=== PATIENT | female | born 1950 | race Caucasian/White ===

== ENCOUNTER → 2017-10-22 08:19 | Outpatient (CLI) | payer MEDICARE, SELFPAY ==
--- NOTE | 2017-10-22 08:24 | MM_ITS ---
MM Dig screening mamm BI w/CAD CAD Screening COMPARISON: Digital mammograms 08/30/2015 and 09/01/2016 INDICATION: There is no personal or family history of breast cancer. TECHNIQUE: Standard CC and MLO images were obtained. R2 CAD reviewed. FINDINGS: Prominent diffuse fibroglandular densities are seen throughout both breast again slightly more prominent in the subareolar region right breast. There is a mole marker right breast. There is no suspicious lesion and there are no suspicious microcalcifications. IMPRESSION: Stable exam no suspicious lesion seen BI-RADS Category: 1 Negative RECOMMENDED FOLLOW-UP: 1YR - 1 YEAR FOLLOW-UP (A letter has been sent to the patient regarding results of the study.)
== END ==
PROVIDERS: Family Provider Internal Medicine Adolescent Medicine; PCP Internal Medicine Adolescent Medicine; Visit Provider Internal Medicine Adolescent Medicine
DX: Z12.31 Encounter for screening mammogram for malignant neoplasm of breast (principal)
CPT/HCPCS: 77067

== ENCOUNTER → 2018-10-23 12:21 | Outpatient (CLI) | payer MEDICARE, SELFPAY ==
[2018-10-23 14:51] LABS: Alanine Aminotransferase 32 U/L (12-78); Albumin Level 4.8 gm/dL (3.4-5.0); Albumin/Globulin Ratio 1.5 (1.1-1.8); Alkaline Phosphatase 110 U/L (46-116); Anion Gap 14.6 mEq/L (5-15); Aspartate Amino Transferase 11 U/L (15-37); Bilirubin,Total 0.7 mg/dL (0.2-1.0); Blood Urea Nitrogen 22 mg/dL (7-18); Calcium 9.7 mg/dL (8.5-10.1); Carbon Dioxide 28 mmol/L (21.0-32.0); Chloride 103 mmol/L (98-107); Chol/HDL Ratio 4.1 (1-3.5); Cholesterol 185 mg/dL (140-200); Creatinine,Serum 0.87 mg/dL (0.55-1.02); Estimated Glomerular Filt Rate 65 ml/min (>60); GFR (African American) 78 ML/MIN (>60); Globulin 3.1 gm/dl (1.3-3.2); Glucose 128 mg/dL (74-106); HDL Cholesterol 45 mg/dL (29-89); LDL Cholesterol 114 mg/dL (0-130); Potassium 4.6 mmoL/L (3.5-5.1); Sodium 141 mmol/L (136-145); Total Protein,Serum 7.9 gm/dL (6.4-8.2); Triglycerides 132 mg/dL (30-200); VLDL Cholesterol 26 mg/dL (0-40)
== END ==
PROVIDERS: Visit Provider Internal Medicine Adolescent Medicine
DX: E11.9 Type 2 diabetes mellitus without complications (principal)
CPT/HCPCS: 36415; 80053; 80061; 83036

== ENCOUNTER → 2018-10-25 08:52 | Outpatient (CLI) | payer MEDICARE, SELFPAY ==
--- NOTE | 2018-10-25 09:01 | MM_ITS ---
MM Dig screening mamm BI w/CAD CAD Screening COMPARISON: Digital mammograms with CAD 10/22/2017 and 09/01/2016 INDICATION: There is no personal or family history of breast cancer. TECHNIQUE: Standard CC and MLO images were obtained. R2 CAD reviewed. FINDINGS: Prominent diffuse heterogenic fibroglandular densities are seen throughout both breasts and the findings are bilateral and symmetrical. There is a mole marker right breast. There is no new or suspicious lesion in either breast and there are no suspicious microcalcifications. IMPRESSION: Stable exam with moderate diffuse breast density BI-RADS Category: 1 Negative RECOMMENDED FOLLOW-UP: 1YR - 1 YEAR FOLLOW-UP (A letter has been sent to the patient regarding results of the study.)
--- NOTE | 2018-10-25 09:01 | XR_ITS ---
XR DEXA axial skeleton HISTORY: ITS.REASON: POST MENOPAUSAL ORDERING PHYSICIAN: Rob Smith MD PATIENT AGE: 68 years COMPARISON: None FINDINGS: The BMD measured at the Left femoral neck is 0.921 g/cm squared with a T score of -0.8. This is considered Normal according to the World Health Organization criteria. Fracture risk is Low. L1 L4 density has a T score of -0.4 which is within normal limits. IMPRESSION: Normal bone density with low fracture risk. Suggest follow-up exam October 2020
== END ==
PROVIDERS: PCP Internal Medicine Adolescent Medicine; Visit Provider Internal Medicine Adolescent Medicine
DX: Z12.31 Encounter for screening mammogram for malignant neoplasm of breast (principal); Z78.0 Asymptomatic menopausal state; Z13.820 Encounter for screening for osteoporosis
CPT/HCPCS: 77067; 77080

== ENCOUNTER → 2019-10-27 09:10 | Outpatient (CLI) | payer MEDICARE, SELFPAY ==
--- NOTE | 2019-10-27 09:13 | MM_ITS ---
PROCEDURE: MM DIG SCREENING MAMM BI W/CAD BILATERAL DIGITAL BREAST TOMOSYNTHESIS included Patient Age:69Y CLINICAL INDICATION: SCREENING no hormones, no new complaints. Noncontributory family history The the COMPARISON: [facility] DIGITAL MAMM-SCREEN BILATERAL from 04/21/2011 [facility] DIGITAL MAMM-SCREEN BILATERAL from 07/12/2012 [facility] DIG MAMM-SCREEN TIM from 07/16/2013 [facility] DIG MAMM-SCREEN TIM from 08/28/2014 [facility] DIG MAMM-SCREEN TIM from 08/30/2015 [facility] DIG MAMM-SCREEN TIM W/CAD from 09/01/2016 [facility] MM Dig screening mamm BI w/CAD from 10/22/2017 [facility] MM Dig screening mamm BI w/CAD from 10/25/2018 the and bridge the TECHNIQUE: Standard CC and MLO images were obtained. R2 CAD reviewed. BILATERAL DIGITAL BREAST TOMOSYNTHESIS included FINDINGS: Moderate density breast. Scattered fibroglandular elements throughout the breast most notable at the retroareolar region bilaterally. Comparison a previous studies show no significant new findings but no new areas of concern. Right breast no new features of significant concern Mole marker at the medial right breast the area of density at the deep medial right breast on CC views unchanged since 2013 Left breast:. No new features of significant concern. Stable areas of fibroglandular density retroareolar region along with stable punctate single calcification, retroareolar region IMPRESSION: Stable bilateral mammogram . No significant new areas of concern. Bilateral follow-up 1 year recommended and should be encouraged Moderate breast density. BI-RAD Category: 1 Negative FOLLOW-UP: 1YR 1 Year Follow-up (A letter has been sent to the patient regarding results of the study.) Dictated by: Nav Walters MD 10/30/2019 12:07 Electronically signed by Nav Walters MD in [place] 10/30/2019 12:07
== END ==
PROVIDERS: PCP Internal Medicine Adolescent Medicine; Visit Provider Internal Medicine Adolescent Medicine
DX: Z12.31 Encounter for screening mammogram for malignant neoplasm of breast (principal)
CPT/HCPCS: 77063; 77067

== ENCOUNTER → 2020-11-03 14:43 | Outpatient (CLI) | payer MEDICARE, SELFPAY ==
--- NOTE | 2020-11-03 14:57 | XR_ITS ---
PROCEDURE: XR CHEST 2V CLINICAL HISTORY: CLAVICLE ENLARGEMENT,CLAVICLE DEFORMITY COMPARISON: No exams were available for comparison FINDINGS: The cardiomediastinal silhouette and pulmonary vascularity are within normal limits. The lungs are clear without infiltrates, suspicious nodules, or pleural effusions. No acute bony abnormalities. IMPRESSION: No acute findings. Dictated by: Blake Montaño MD 11/03/2020 16:26 Blake Montaño MD in [facility] 11/03/2020 16:26
--- NOTE | 2020-11-03 14:57 | XR_ITS ---
PROCEDURE: XR CLAVICLE RT CLINICAL INDICATION: CLAVICLE ENLARGEMENT,CLAVICLE DEFORMITY Knot on clavicle near the sternum COMPARISON: No exams were available for comparison FINDINGS: No fracture or dislocation. No lytic or blastic change. There is normal mineralization. Osteoarthritic changes are present at the acromioclavicular joint. There is a downsloping a chromium with subacromial stenosis and suggestion of a calcific tendinitis of the right shoulder. The sternoclavicular joint is not well demonstrated on this study and may be better evaluated with CT. Other findings:None. IMPRESSION: Osteoarthritic changes are present at the acromioclavicular joint. There is a downsloping a chromium with subacromial stenosis and suggestion of a calcific tendinitis of the right shoulder. The sternoclavicular joint is not well demonstrated on this study and may be better evaluated with CT. Dictated by: Blake Montaño MD 11/03/2020 16:25 Blake Montaño MD in [facility] 11/03/2020 16:25
== END ==
PROVIDERS: PCP Internal Medicine Adolescent Medicine; Visit Provider Internal Medicine Adolescent Medicine
DX: M89.311 Hypertrophy of bone, right shoulder (principal); M95.8 Other specified acquired deformities of musculoskeletal system
CPT/HCPCS: 71046; 73000

== ENCOUNTER → 2020-12-10 12:28 | Outpatient (CLI) | payer MEDICARE, SELFPAY ==
--- NOTE | 2020-12-10 12:31 | CT_ITS ---
PROCEDURE: CT CHEST WO CON CLINICAL INDICATION: CLAVICLE ENLARGEMENT,CLAVICLE DEFORMITY COMPARISON: No exams were available for comparison TECHNIQUE: Axial images obtained with sagittal and coronal reformats. All CT scans at the facility use one or more dose reduction, viz: automated exposure control, ma/kV adjustment per patient size (including targeted exams where dose is matched to indication, i.e. head), or iterative reconstruction technique. FINDINGS: There is a hypodense 10 mm nodule involving the isthmus of the thyroid gland. This may be better evaluated with ultrasound. Osteoarthritic change involves the right sternoclavicular joint with osteophyte formation of the joint with mild prominence of the head of the clavicle on the right. No bony lytic or blastic change apparent No evidence of aortic aneurysm. Coronary artery calcifications are present. There is mild thickening of the pericardium at approximately 5 mm. There is a small hiatal hernia. Scattered small nodes are present in the left axilla. There is evidence of old granulomatous disease. A nonspecific 3 mm nodules present in the right lower lobe posteriorly image 54 series 3 there is a small cluster of nodules in the left upper lobe anteriorly largest of which measures 4 mm. Calcified granuloma is present in the right upper lobe. Mild atelectatic or fibrotic changes are present in the left lung base posteriorly. There is some mild associated bronchial thickening in the left lower lobe. A 3 mm subpleural nodules present in the left lower lobe laterally image 57 Small sclerotic focus is present involving the T5 vertebral body suggesting a small bone island. There are mild degenerative changes in the thoracic spine. IMPRESSION: 1. Bony hypertrophy of the head of the clavicle with osteoarthritic change of the right sternoclavicular joint likely accounting for the palpable abnormality. No bony destructive process. No soft tissue mass. 2. 1 cm nodule in the isthmus of the thyroid gland which may be better evaluated with ultrasound. 3. There are scattered small pulmonary nodules measuring up to 4 mm. These are nonspecific and could be related to noncalcified granulomas. Six-month follow-up suggested to confirm stability. 4. Mild atelectasis or fibrosis in the left lower lobe with left lower lobe bronchial thickening Dictated by: Blake Montaño MD 12/11/2020 14:09 Blake Montaño MD in [facility] 12/11/2020 14:09
== END ==
PROVIDERS: PCP Internal Medicine Adolescent Medicine; Visit Provider Internal Medicine Adolescent Medicine
DX: M89.311 Hypertrophy of bone, right shoulder (principal); M95.8 Other specified acquired deformities of musculoskeletal system
CPT/HCPCS: 71250

== ENCOUNTER → 2021-01-03 12:44 | Outpatient (CLI) | payer MEDICARE, SELFPAY ==
--- NOTE | 2021-01-03 12:49 | US_ITS ---
PROCEDURE: US THYROID CLINICAL INDICATION: THYROID NODULE Seen on recent CT in pacs. Seen at isthmus. COMPARISON: CT CT CHEST WO CON from 12/10/2020 FINDINGS: Right lobe: 1.4cm x 4.1cm x 1.9cm. 2 mm hypoechoic nodule lower pole Left lobe: 1.1cm x 4.0cm x 1.6cm. 2 mm hypoechoic nodule mid polar region Isthmus: 14 by 10 mm hyperechoic nodule well-circumscribed with peripheral decreased echogenicity noted in the right aspect of the isthmus. No obvious internal calcifications. The nodule is taller than wide. Additional findings: IMPRESSION: T rads level 4 nodule of the right aspect of the isthmus less than 1.5 cm. Suggest 6-12 month follow-up. Dictated by: Blake Montaño MD 01/04/2021 05:56 Blake Montaño MD in [facility] 01/04/2021 05:56
[2021-01-03 12:58] LABS: Alanine Aminotransferase 25 U/L (12-78); Albumin Level 5.1 g/dl (3.5-5.0); Alkaline Phosphatase 91 U/L (38-126); Anion Gap 12.6 mEq/L (5-15); Aspartate Amino Transferase 28 U/L (14-36); Bilirubin,Total 0.7 mg/dl (0.2-1.3); Blood Urea Nitrogen 18 mg/dl (7-17); Calcium 10.2 mg/dl (8.4-10.2); Carbon Dioxide 27 mmol/L (22.0-30.0); Chloride 105 mmol/L (98-107); Estimated Glomerular Filt Rate 82 ml/min (>60); GFR (African American) 100 ML/MIN (>60); Globulin 2.5 g/dL (1.3-3.2); Glucose 125 mg/dl (74-100); Potassium 4.6 mmoL/L (3.5-5.1); Sodium 140 mmol/L (136-145); Total Protein,Serum 7.6 g/dl (6.3-8.2)
[2021-01-03 13:13] LABS: Free Thyroxine Index 2.6 ug/dL (5.93-13.13); T4 (Thyroxine) 7.6 ug/dl (5.53-11.0); Triiodothryronine (T3) Uptake 34 % (23.5-40.5)
[2021-01-03 13:27] LABS: Thyroid Stimulating Hormone 1.18 uIU/mL (0.465-4.68)
[2021-01-03 20:44] LABS: Hemoglobin A1C 7.2 % (4.0-6.0)
== END ==
PROVIDERS: PCP Internal Medicine Adolescent Medicine; Visit Provider Internal Medicine Adolescent Medicine
DX: E11.9 Type 2 diabetes mellitus without complications (principal); E04.1 Nontoxic single thyroid nodule
CPT/HCPCS: 36415; 76536; 80053; 83036; 84436; 84443; 84479

== ENCOUNTER → 2021-04-26 08:21 | Outpatient (CLI) | payer MEDICARE, SELFPAY ==
--- NOTE | 2021-04-26 08:24 | MM_ITS ---
PROCEDURE: MM DIG SCREENING MAMM BI W/CAD Digital Breast Tomosynthesis Included CLINICAL INDICATION: SCREENING COMPARISON: MG [facility] MM Dig screening mamm BI w/CAD from 10/22/2017 MG [facility] MM Dig screening mamm BI w/CAD from 10/25/2018 MG MM DIG SCREENING MAMM BI W/CAD from 10/27/2019 TECHNIQUE: Standard CC and MLO images and 3D Tomosynthesis was obtained. R2 CAD reviewed. FINDINGS: Heterogeneous dense fibroglandular tissue which may obscure small masses. Benign-appearing calcifications. No suspicious appearing mass, malignant-appearing microcalcification, architectural distortion, or skin thickening. No change. IMPRESSION: Benign findings. No evidence of malignancy. BI-RAD Category: 2 Benign Finding FOLLOW-UP: 1 YR 1 Year Follow-up (A letter has been sent to the patient regarding results of the study.) Dictated by: Blake Montaño MD 04/29/2021 10:25 Blake Montaño MD in [facility] 04/29/2021 10:25
== END ==
PROVIDERS: PCP Internal Medicine Adolescent Medicine; Visit Provider Internal Medicine Adolescent Medicine
DX: Z12.31 Encounter for screening mammogram for malignant neoplasm of breast (principal)
CPT/HCPCS: 77063; 77067

== ENCOUNTER → 2021-07-04 12:46 | Outpatient (CLI) | payer MEDICARE, SELFPAY ==
--- NOTE | 2021-07-04 13:00 | US_ITS ---
PROCEDURE: US THYROID CLINICAL INDICATION: THYROID NODULE COMPARISON: US US THYROID from 01/03/2021 FINDINGS: Lobe is 4.3 x 1.8 x 1.3 cm. The left lobe is 3.8 x 1.9 x 1 5 cm. In the right aspect of the isthmus there is a well-circumscribed 1.6 x 1 cm hyperechoic nodule with a subtle lucent rim. This is not significantly changed. This lesion is wider than tall well-circumscribed and contains no obvious calcifications. TR level 2. 3 mm hypoechoic nodules present in the lower pole on the right unchanged. 2 mm hypoechoic nodule in the upper pole on the left unchanged IMPRESSION: No significant change in the solid hyperechoic well-circumscribed nodule of the isthmus on the right TR level 3 less than 2.5 cm. Suggest annual follow-up. Dictated by: Blake Montaño MD 07/04/2021 16:31 Blake Montaño MD in [facility] 07/04/2021 16:31
[2021-07-04 16:13] LABS: Alanine Aminotransferase 24 U/L (12-78); Albumin Level 4.7 g/dl (3.5-5.0); Albumin/Globulin Ratio 1.7 (1.1-1.8); Alkaline Phosphatase 93 U/L (38-126); Anion Gap 11.5 mEq/L (5-15); Aspartate Amino Transferase 28 U/L (14-36); Bilirubin,Total 0.9 mg/dl (0.2-1.3); Blood Urea Nitrogen 14 mg/dl (7-17); Carbon Dioxide 29 mmol/L (22.0-30.0); Chloride 103 mmol/L (98-107); Estimated Glomerular Filt Rate 98 ml/min (>60); GFR (African American) 119 ML/MIN (>60); Globulin 2.7 g/dL (1.3-3.2); Glucose 106 mg/dl (74-100); Potassium 4.5 mmoL/L (3.5-5.1); Sodium 139 mmol/L (136-145); Total Protein,Serum 7.4 g/dl (6.3-8.2)
[2021-07-04 16:43] LABS: Thyroid Stimulating Hormone 0.86 uIU/mL (0.465-4.68)
[2021-07-04 18:19] LABS: Hemoglobin A1C 7.1 % (4.0-6.0)
== END ==
PROVIDERS: PCP Internal Medicine Adolescent Medicine; Visit Provider Internal Medicine Adolescent Medicine
DX: E04.1 Nontoxic single thyroid nodule (principal); E11.9 Type 2 diabetes mellitus without complications
CPT/HCPCS: 36415; 76536; 80053; 83036; 84443

== ENCOUNTER → 2022-05-11 16:12 | Outpatient (CLI) | payer MEDICARE, SELFPAY ==
--- NOTE | 2022-05-11 16:16 | MM_ITS ---
PROCEDURE INFORMATION: Exam: MG Bilateral Screening 3D Mammography Exam date and time: 05/11/2022 4:11 PM Age: 71 years old Clinical indication: Screening examination TECHNIQUE: Imaging protocol: Bilateral Screening tomosynthesis and 2D mammography including computer-aided detection (CAD) when performed. COMPARISON: 1. MG MM DIG SCREENING MAMM BI W/CAD 04/26/2021 8:37 AM 2. MG MM DIG SCREENING MAMM BI W/CAD 10/27/2019 9:24 AM FINDINGS: MAMMOGRAPHY: Breast composition: The breasts are heterogeneously dense, which may obscure small masses. Mass: None. Architectural distortion: None. Calcifications: No suspicious calcifications. Asymmetric density: None. Skin thickening: None. Axillary adenopathy: None. IMPRESSION: No mammographic evidence of malignancy. Annual screening is recommended unless otherwise clinically indicated. ASSESSMENT: BI-RADS Category 1: Negative
== END ==
PROVIDERS: PCP Internal Medicine Adolescent Medicine; Visit Provider Internal Medicine Adolescent Medicine
DX: Z12.31 Encounter for screening mammogram for malignant neoplasm of breast (principal)
CPT/HCPCS: 77063; 77067

== ENCOUNTER → 2022-07-14 09:13 | Outpatient (CLI) | payer MEDICARE, SELFPAY ==
--- NOTE | 2022-07-14 09:16 | XR_ITS ---
FINAL REPORT TECHNIQUE: Bone densitometry calculations of the lumbar spine and left hip were obtained. CLINICAL HISTORY: . post menopausal COMPARISON: 10/25/2018 FINDINGS: Using L1-4, the bone mineral density of the spine is 0.995 g/cm2, was 1.136 corresponding to T-score of -0.5, was -0.4. Using the left hip, the bone mineral density of the femoral neck is 0.812 g/cm2, was 0.905 corresponding to a T-score of -1.1, was -0.8. Using the right hip, the bone mineral density of the femoral neck is 0.794 g/cm2, was 0.923 he corresponding to a T-score of T-score -0.5, was -0.8. NOTE: T-score: Standard deviation compared with peak bone mass of young adult mean. *Following the recommendations of the International Society of Bone densitometry, classification of hip BMD is based on the lower of two T-scores; total hip or femoral neck. IMPRESSION: Normal bone mineral density of the right hip and lumbar spine. Diminished bone mineral density of the left hip. Reviewed, Interpreted and Dictated by Jorge Coleman MD Transcribed by Celia Zheng Authenticated and [facility]
== END ==
PROVIDERS: PCP Internal Medicine Adolescent Medicine; Visit Provider Internal Medicine Adolescent Medicine
DX: Z13.820 Encounter for screening for osteoporosis (principal); Z78.0 Asymptomatic menopausal state
CPT/HCPCS: 77080

== ENCOUNTER → 2023-05-15 13:01 | Outpatient (CLI) | payer MEDICARE, SELFPAY ==
--- NOTE | 2023-05-15 13:05 | MM_ITS ---
PROCEDURE INFORMATION: Exam: MG Bilateral Screening 3D Mammography Exam date and time: 05/15/2023 1:10 PM Age: 72 years old Clinical indication: Screening mammogram. No personal or family history of breast cancer TECHNIQUE: Imaging protocol: Bilateral Screening tomosynthesis and 2D mammography including computer-aided detection (CAD) when performed. COMPARISON: 1. MG MM DIG SCREENING MAMM BI W/CAD 05/11/2022 4:11 PM 2. MG MM DIG SCREENING MAMM BI W/CAD 04/26/2021 8:37 AM 3. MG MM DIG SCREENING MAMM BI W/CAD 10/27/2019 9:24 AM 4. MG [facility] MM Dig screening mamm BI w/CAD 10/25/2018 9:17 AM FINDINGS: MAMMOGRAPHY: Breast composition: The breast is heterogeneously dense, which may obscure small masses. Mass: None. Architectural distortion: No new or suspicious architectural distortion. Calcifications: No new or suspicious calcifications are present Asymmetric density: No new or suspicious asymmetric density is present Skin thickening: None. Axillary adenopathy: None. IMPRESSION: No mammographic evidence of malignancy. Recommend annual screening mammography unless otherwise clinically indicated. ASSESSMENT: BI-RADS category 1: Negative
== END ==
PROVIDERS: PCP Internal Medicine Adolescent Medicine; Visit Provider Internal Medicine Adolescent Medicine
DX: Z12.31 Encounter for screening mammogram for malignant neoplasm of breast (principal)
CPT/HCPCS: 77063; 77067

== ENCOUNTER → 2023-07-17 13:34 | Outpatient (CLI) | payer MEDICARE, SELFPAY ==
--- NOTE | 2023-07-17 13:39 | US_ITS ---
FINAL REPORT CLINICAL HISTORY: THYROID NODULE FINDINGS: THYROID ULTRASOUND The right lobe of the thyroid measures 4.0 x 1.6 x 1.7 cm. The left lobe of the thyroid measures 4.0 x 1.3 x 1.4 cm. The parenchyma shows normal echogenicity. There is a dominant nodule in the right lobe of the thyroid near the isthmus measuring 1.3 cm that is solid and isoechoic consistent with a TI-RADS 3. No follow-up is required per TI-RADS criteria. There are tiny colloid cysts noted bilaterally. IMPRESSION: Dominant TI-RADS 3 right thyroid nodule. No follow-up required per TI-RADS criteria. Reviewed, Interpreted and Dictated by Jorge Coleman MD Transcribed by Pavel Mcnair Authenticated and [facility]
== END ==
PROVIDERS: PCP Internal Medicine Adolescent Medicine; Visit Provider Internal Medicine Adolescent Medicine
DX: E04.1 Nontoxic single thyroid nodule (principal)
CPT/HCPCS: 76536

== ENCOUNTER 2024-06-06 13:22 | Outpatient (CLI) | payer MEDICARE, SELFPAY ==
--- NOTE | 2024-06-06 13:24 | MM_ITS ---
PROCEDURE INFORMATION: Exam: MG Bilateral Screening 3D Mammography Exam date and time: 06/06/2024 1:22 PM Age: 74 years old Clinical indication: Screening examination TECHNIQUE: Imaging protocol: Bilateral Screening tomosynthesis and 2D mammography including computer-aided detection (CAD) when performed. COMPARISON: 1. MG MM DIG SCREENING MAMM BI W/CAD 05/15/2023 1:10 PM 2. MG MM DIG SCREENING MAMM BI W/CAD 05/11/2022 4:11 PM FINDINGS: MAMMOGRAPHY: Breast composition: There are scattered areas of fibroglandular density. Mass: None. Architectural distortion: None. Calcifications: No suspicious calcifications. Asymmetric density: None. Skin thickening: None. Axillary adenopathy: None. IMPRESSION: No mammographic evidence of malignancy. Annual screening is recommended unless otherwise clinically indicated. ASSESSMENT: BI-RADS Category 1: Negative.
== END 2024-06-06 23:59 | disposition home or self-care (01) ==
LOC: RAD 13:22
PROVIDERS: PCP Internal Medicine Adolescent Medicine; Visit Provider Internal Medicine Adolescent Medicine
DX: Z12.31 Encounter for screening mammogram for malignant neoplasm of breast (principal)
CPT/HCPCS: 77063; 77067

== ENCOUNTER 2025-01-07 10:57 | Outpatient (CLI) | payer MEDICARE, SELFPAY ==
--- NOTE | 2025-01-07 11:02 | XR_ITS ---
FINAL REPORT CLINICAL HISTORY: OSTEOARTHRITIS, knee pain, nki COMPARISON: None FINDINGS: AP, lateral and oblique views of the left knee were obtained. There is no prior exam for comparison. There is no acute osseous abnormality of the left knee. Mild degenerative joint disease is present. The soft tissues are normal. There is a small joint effusion. IMPRESSION: Degenerative joint disease, with no acute osseous abnormality of the left knee. Small joint effusion. Reviewed, Interpreted and Dictated by Deisi Segura MD Transcribed by Veronique Ferris Authenticated and [facility]
--- NOTE | 2025-01-07 11:02 | XR_ITS ---
FINAL REPORT CLINICAL HISTORY: knee pain, nki COMPARISON: None FINDINGS: AP, lateral and oblique views of the right knee were obtained. There is no prior exam for comparison. There is no acute osseous abnormality of the right knee. Mild degenerative joint disease is present. The soft tissues are normal. There is no joint effusion. IMPRESSION: Mild degenerative joint disease, with no acute osseous abnormality of the right knee. Reviewed, Interpreted and Dictated by Deisi Segura MD Transcribed by Veronique Ferris Authenticated and [facility]
== END 2025-01-07 23:59 | disposition home or self-care (01) ==
LOC: RAD 10:58
PROVIDERS: PCP Internal Medicine Adolescent Medicine; Visit Provider Internal Medicine Adolescent Medicine
DX: M17.0 Bilateral primary osteoarthritis of knee (principal)
CPT/HCPCS: 73562

== ENCOUNTER 2025-06-18 08:21 | Outpatient (CLI) | payer MEDICARE, SELFPAY ==
--- OUTSIDE RECORDS SUMMARY | 2008-11-30 08:48 | XMS_ITS | Continuity of Care Document ---
Author Organization [facility] Address [address] [place] [address] Phone Care Team Providers Care Cook Cold Meat Name Role Phone JOSHUA PARSONS, JACE Unavailable Unavaila ble Advance Directives Directive Yes / No Effective Date File Name No Information Encounters Encounter Description Practice Location Reason(s) For Visit Diagnoses Date Provider Providers Copied on Encounter [facility], [address] [place] [address] [address], [place], [place], [id number], tel:[phone] [facility] No Information Mar-3 0-200 9 JOSHUA JOLLY. [address] [place] [address], [address], [place], [place], [id number] . tel:[phone] Family History Family Member Type Diagnosis Age At Onset No Information Payers Payer name Insurance type Covered alliance party ID Authoriza tion(s) No Information Social History Type Description Quantity Date Captured Comments Sex Female Smoking Status No Information Chief Complaint And Reason For Visit No Information Plan Of Treatment Date Type Action Status No Information History Of Present Illness Encounter Date Complaint History Of Prese nt Illness No Information Instructions Date Instruction Additional Infor mation No Information Assessments Type Assessment Date No Information
--- OUTSIDE RECORDS SUMMARY | 2024-12-06 17:30 | XMS_ITS ---
Author Organization [facility] Address [address] [place] [address] Care Team Providers Care Director Search Name Role Phone Rob Smith Primary Care Provider Migration, Provider Unavailable Unavailable Allergies Allergen (clinical drug ingredient) Drug/Non Drug Allergy documented on EMR Reaction Allergy Type Onset Date Status pravastatin Pravastatin muscle pain Drug Allergy A ctive [facility] Conversion Encounter Medications Medication SIG (Take, Route, Frequency, Duration) Notes Start Date End Date Status Jardiance 25 MG TAKE 1 TABLET DAILY IN THE MORNING Active Rosuvastatin Calcium 5 MG 1 tab(s) orally once a day; Duration: 90 days Active Verapamil HCl ER 100 MG/24 HOURS 1 CAP(S) ORALLY ONCE A DAY (AT BEDTIME); Duration: 90 DAYS *Please review and pick correct strength[facility]ulatio [facility]. 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 If intended option is not shown, discontinue and re-order from Quick Search* metFORMIN HCl ER 500 MG TAKE 2 TABLETS TWICE A DAY Next Appt Details Provider Name:Rob Smith, 07/08/2025 10:00:00 AM, [address], [address], [place], [address], Progress Notes * Farzaneh MATOS ADOB:[birth year] (75 yo F)Acc No.[id number]:12/06/2024 Patient: Farzaneh HORVATH Provider: Alonzo Muñoz :1950 A ge:74 Y S ex:Female Date:12/06/2024 Address:[address] [place] [address], [facility] Pcp:Rob Smith Subjective: * Chief Complaints: * 1 . [facility] Encounter. * Medical History: * Medications: T aking ASPIR-LOW 81 MG ENTERIC COATED TABLET 1 TAB(S) ORALLY ONCE A DAY , Notes to Pharmacist: *Please review for potential replacement for e-prescription and drug interaction check*, Taking Losartan Potassium 100 MG Tablet 1 tab(s) orally once a day , Taking Rosuvastatin Calcium 5 MG Tablet 1 tab(s) orally once a day , Taking Jardiance 25 MG Tablet TAKE 1 TABLET DAILY IN THE MORNING * Allergies: P ravastatin: muscle pain. Objective: * Vitals: Assessment: * Assessment: 1. T ype 2 diabetes mellitus with other diabetic kidney complication - E11.29 (Primary) ? Plan: * Treatment: 2. O thers Start metFORMIN HCl ER Tablet Extended Release 24 Hour, 500 MG, TAKE 2 TABLETS TWICE A DAY, 360 Tablet, Refills 3. * * Electronic signature of Prov ider Migration on 06/18/2025 at 08:35 AM EDT Sign off status: Pending * Provider: Alonzo gonzalez Migration Date: 0 12/06/2024 Generated for Sebastian rodriguez/Anton/Karsten on: 1 08:35 AM EDT
--- OUTSIDE RECORDS SUMMARY | 2025-06-05 06:30 | XMS_ITS ---
Author Organization [facility] Address [address] [facility] [address] [place] [address] Care Team Providers Care Plaster Mixer Name Role Phone SarahKevinRob Primary Care Provider REASON FOR VISIT mammogram order Encounters Encounter Location Date Provider Diagnosis [facility] [address] [facility] [address] [place] [address] 06/05/2025 Rob Smith Visit for screening mammogram Z12.31 Assessments Encounter Date Diagnosis (ICD Code) Assessment Notes Treatment Notes Treatment Clinical Notes Section Notes 06/05/2025 Visit for screening mammogram (ICD-10 - Z12.31) Plan Of Treatment Pending Test Test Name Order Date Mammogram : Bilateral 06/05/2025 Next Appt Details Provider Name:Robaldo Robbur Sarah, 07/08/2025 10:00:00 AM, [address] [facility], [address], [place], [address], Progress Notes * Farzaneh MATOS ADOB:[birth year] (75 yo F)Acc No.[id number]:06/05/2025 Patient: Farzaneh HORVATH :1950 A ge:75 Y S ex:Female Address:[address] [facility] [place] [address] Subjective: * Chief Complaints: * M ammogram order * Medical History: * Surgical History: * Hospitalization/Major Diagno stic Procedure: * Medications: Objective: * Vitals: * Physical Examination: Assessment: * Assessment: 1. V isit for screening mammogram - Z12.31 Plan: * Treatment: * Procedure Codes: * true * Date: Generated for Sebastian rodriguez/Anton/Karsten on: 08:34 AM EDT
--- NOTE | 2025-06-18 08:23 | MM_ITS ---
PROCEDURE INFORMATION: Exam: MG Bilateral Screening 3D Mammography Exam date and time: 06/18/2025 8:25 AM Age: 75 years old Clinical indication: Screening examination TECHNIQUE: Imaging protocol: Bilateral Screening tomosynthesis and 2D mammography including computer-aided detection (CAD) when performed. COMPARISON: 1. MG MM DIG SCREENING MAMM BI W/CAD 06/06/2024 1:22 PM 2. MG MM DIG SCREENING MAMM BI W/CAD 05/15/2023 1:10 PM FINDINGS: MAMMOGRAPHY: Breast composition: There are scattered areas of fibroglandular density. Mass: None. Architectural distortion: None. Calcifications: No suspicious calcifications. Asymmetric density: None. Skin thickening: None. Axillary adenopathy: None. IMPRESSION: No mammographic evidence of malignancy. Annual screening is recommended unless otherwise clinically indicated. ASSESSMENT: BI-RADS Category 1: Negative.
--- OUTSIDE RECORDS SUMMARY | 2025-06-18 08:35 | XMS_ITS | Patient Health Record ---
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 Role Phone Rob Smith Primary Care Provider Migration, Provider Unavailable Unavailable Allergies Allergen (clinical drug ingredient) Drug/Non Drug Allergy documented on EMR Reaction Allergy Type Onset Date Status pravastatin Pravastatin muscle pain Drug Allergy A ctive Results Component Value Reference Range Notes LIPID PANEL, STANDARD (7600) Reviewed date:07/10/2024 02:35:48 PM Interpretation: Performing Lab:KRISTINA, [facility] [address] Ashu Gill Notes/Report: FASTING: YES FASTING:YES NON-FASTING; NON-FASTING; NON-FASTING CHOLESTEROL, TOTAL 124 <200 mg/dL HDL CHOLESTEROL 41 > OR = 50 mg/dL TRIGLYCERIDES 94 <150 mg/dL LDL-CHOLESTEROL 65 Reference range: <100 Desirable range <100 mg/dL for primary prevention; <70 mg/dL for patients with CHD or diabetic patients with > or = 2 CHD risk factors. LDL-C is now calculated using the Noman calculation, which is a validated novel method providing better accuracy than the Friedewald equation in the estimation of LDL-C. Nas GIANG et al. JOSE. 2013;310(19): 8446-4879 (http://education.[employer].iDubba/faq/RVU421) CHOL/HDLC RATIO 3.0 <5.0 (calc) NON HDL CHOLESTEROL 83 <130 mg/dL (calc) For patients with diabetes plus 1 major ASCVD risk factor, treating to a non-HDL-C goal of <100 mg/dL (LDL-C of <70 mg/dL) is considered a therapeutic option. COMPREHENSIVE METABOLIC PANPatt Layton ([id number]) Reviewed date:07/10/2024 02:35:49 PM Interpretation: Performing Lab:KRISTINA [employer] [id number] [employer], [place] [id number] Ashu Gill Notes/Report: NON-FASTING; NON-FASTING; NON-FASTING FASTING:YES FASTING: YES GLUCOSE 114 65-99 mg/dL Fasting reference interval For someone without known diabetes, a glucose value between 100 and 125 mg/dL is consistent with prediabetes and should be confirmed with a follow-up test. UREA NITROGEN (BUN) 19 7-25 mg/dL CREATININE 0.75 0.60-1.00 mg/dL EGFR 83 > OR = 60 mL/min/1.73m2 BUN/CREATININE RATIO SEE NOTE: 6-22 (calc) Not Reported: BUN and Creatinine are within reference range. SODIUM 142 135-146 mmol/L POTASSIUM 4.2 3.5-5.3 mmol/L CHLORIDE 105 98-110 mmol/L CARBON DIOXIDE 26 20-32 mmol/L CALCIUM 9.4 8.6-10.4 mg/dL PROTEIN, TOTAL 7.1 6.1-8.1 g/dL ALBUMIN 4.9 3.6-5.1 g/dL GLOBULIN 2.2 1.9-3.7 g/dL (calc) ALBUMIN/GLOBULIN RATIO 2.2 1.0-2.5 (calc) BILIRUBIN, TOTAL 0.7 0.2-1.2 mg/dL ALKALINE PHOSPHATASE 84 37-153 U/L AST 15 10-35 U/L ALT 13 6-29 U/L HEMOGLOBIN A1c (496) Reviewed date:07/10/2024 02:35:49 PM Interpretation: Performing Lab:KRISTINA [employer]e[address] [facility] [employer], [place] Ashu Gill Notes/Report: NON-FASTING; NON-FASTING; NON-FASTING FASTING:YES FASTING: YES HEMOGLOBIN A1c 7.2 <5.7 % of total Hgb For someone without known diabetes, a hemoglobin A1c value of 6.5% or greater indicates that they may have diabetes and this should be confirmed with a follow-up test. For someone with known diabetes, a value <7% indicates that their diabetes is well controlled and a value greater than or equal to 7% indicates suboptimal control. A1c targets should be individualized based on duration of diabetes, age, comorbid conditions, and other considerations. Currently, no consensus exists regarding use of hemoglobin A1c for diagnosis of diabetes for children. X ray : Knee, Left Reviewed date:01/08/2025 08:58:54 PM Interpretation: Performing Lab: Notes/Report: X ray : Knee, Right Reviewed date:01/09/2025 04:36:56 PM Interpretation: Performing Lab: Notes/Report: HEMOGLOBIN A1c (496) Reviewed date:01/09/2025 04:36:56 PM Interpretation: Performing Lab:KRISTINA [employer] [id number] [employer], [employer] [id number] Ashu Gill Notes/Report: NON-FASTING; NON-FASTING; NON-FASTING FASTING:YES FASTING: YES HEMOGLOBIN A1c 7.5 <5.7 % For someone without known diabetes, a hemoglobin A1c value of 6.5% or greater indicates that they may have diabetes and this should be confirmed with a follow-up test. For someone with known diabetes, a value <7% indicates that their diabetes is well controlled and a value greater than or equal to 7% indicates suboptimal control. A1c targets should be individualized based on duration of diabetes, age, comorbid conditions, and other considerations. Currently, no consensus exists regarding use of hemoglobin A1c for diagnosis of diabetes for children. Microalbumin (In-House) Reviewed date:01/07/2025 10:54:20 AM Interpretation:Normal Performing Lab: Notes/Report: Normal ALB 30 CRE 100 A:C <30 COMPREHENSIVE METABOLIC PANE L ([id number]) Reviewed date:01/09/2025 04:36:56 PM Interpretation: Performing Lab:KRISTINA [employer] [id number] [employer] [facility], ConjurAmnlEG[address] Ashu Gill Notes/Report: NON-FASTING; NON-FASTING; NON-FASTING FASTING:YES FASTING: YES GLUCOSE 122 65-99 mg/dL Fasting reference interval For someone without known diabetes, a glucose value between 100 and 125 mg/dL is consistent with prediabetes and should be confirmed with a follow-up test. UREA NITROGEN (BUN) 22 7-25 mg/dL CREATININE 0.78 0.60-1.00 mg/dL EGFR 79 > OR = 60 mL/min/1.73m2 BUN/CREATININE RATIO SEE NOTE: 6-22 (calc) Not Reported: BUN and Creatinine are within reference range. SODIUM 140 135-146 mmol/L POTASSIUM 4.2 3.5-5.3 mmol/L CHLORIDE 104 98-110 mmol/L CARBON DIOXIDE 25 20-32 mmol/L CALCIUM 9.8 8.6-10.4 mg/dL PROTEIN, TOTAL 7.3 6.1-8.1 g/dL ALBUMIN 5.1 3.6-5.1 g/dL GLOBULIN 2.2 1.9-3.7 g/dL (calc) ALBUMIN/GLOBULIN RATIO 2.3 1.0-2.5 (calc) BILIRUBIN, TOTAL 0.7 0.2-1.2 mg/dL ALKALINE PHOSPHATASE 90 37-153 U/L AST 16 10-35 U/L ALT 16 6-29 U/L LIPID PANEL, STANDARD (7600) Reviewed date:01/09/2025 04:36:56 PM Interpretation: Performing Lab:KRISTINA, [employer] [id number] [facility], [facility] HospitalAshhLO[address] Ashu Gill Notes/Report: NON-FASTING; NON-FASTING; NON-FASTING FASTING:YES FASTING: YES CHOLESTEROL, TOTAL 147 <200 mg/dL HDL CHOLESTEROL 50 > OR = 50 mg/dL TRIGLYCERIDES 88 <150 mg/dL LDL-CHOLESTEROL 80 Reference range: <100 Desirable range <100 mg/dL for primary prevention; <70 mg/dL for patients with CHD or diabetic patients with > or = 2 CHD risk factors. LDL-C is now calculated using the Nas-Maria Del Carmen calculation, which is a validated novel method providing better accuracy than the Friedewald equation in the estimation of LDL-C. Nas SS et al. JOSE. 2013;310(19): 3386-5968 (http://education.[employer]faq/IBZ394) CHOL/HDLC RATIO 2.9 <5.0 (calc) NON HDL CHOLESTEROL 97 <130 mg/dL (calc) For patients with diabetes plus 1 major ASCVD risk factor, treating to a non-HDL-C goal of <100 mg/dL (LDL-C of <70 mg/dL) is considered a therapeutic option. Microalbumin (In-House) Reviewed date:07/09/2024 01:36:15 PM Interpretation:Abnormal Performing Lab: Notes/Report: Abnormal ALB 150mg/L CRE 200mg/dL A:C 30-300mg/g Medications Medication SIG (Take, Route, Frequency, Duration) Notes Start Date End Date Status Losartan Potassium 100 mg TAKE 1 TABLET DAILY Active Verapamil HCl ER 100 mg TAKE 1 CAPSULE DAILY AT BEDTIME Active metFORMIN HCl ER 500 MG TAKE 2 TABLETS TWICE A DAY Active ASPIR-LOW 81 MG 1 TAB(S) ORALLY ONCE A DAY *Please review for potential replacement for e-prescription and drug interaction check* Active Rosuvastatin Calcium 5 mg TAKE 1 TABLET DAILY Active Jardiance 25 MG 1 tablet Orally Once a day; Duration: 90 days Active Immunizations Vaccine Route Administration Date Status Comme nts Tetanus Toxoid Unknown 08/12/2007 Administered Tenivac (Td) 7 + yrs IM Intramuscular 11/05/2013 Administe red Prevnar PCV-13 (Pneumococcal conjugate 13) IM Intramuscular 04/22/2018 Administered Pneumovax-23 (pneumococccal vaccine polyvalent)2 years or older IM Intramuscular 11/05/2013 Administered Influenza (Fluzone)--Medicare only IM Intramuscular 06/19/2016 Administered Influenza (Fluzone)--Medicare only IM Intramuscular 06/18/2017 Administered Fluzone High Dose IM Intramuscular 04/22/2018 Administered Fluzone High Dose IM Intramuscular 06/23/2019 Administered Fluzone High Dose IM Intramuscular 07/05/2020 Administered Fluzone High Dose IM Intramuscular 07/04/2021 Administered Fluzone High Dose IM Intramuscular 07/05/2022 Administered Fluzone High Dose IM Intramuscular 07/09/2023 Administered Fluzone High Dose IM Intramuscular 07/09/2024 Administered Fluvirin--Influenza vaccine 3+ year IM Intramuscular 06/14/2009 Administered Fluvirin--Influenza vaccine 3+ year IM Intramuscular 07/18/2010 Administered Fluvirin--Influenza vaccine 3+ year IM Intramuscular 07/25/2011 Administered Fluvirin--Influenza vaccine 3+ year IM Intramuscular 07/12/2012 Administered Fluvirin--Influenza vaccine 3+ year IM Intramuscular 07/16/2013 Administered Fluvirin--Influenza vaccine 3+ year IM Intramuscular 06/24/2014 Administered Social History Tobacco Use: Social History Observation Description Date Details (start date - stop date) Never Smoker NA - NA Smoking: Question Answer Notes Are you a: nonsmoker Additional Findings: Tobacco Non-User Current no n-smoker Problems Problem Type SNOMED Code ICD Code Onset Dates Problem Status W/U Status Risk Notes Problem Diabetic renal disease (049329987) Type 2 diabetes mellitus with other diabetic kidney complication (E11.29) Active confirmed Problem Type 2 diabetes mellitus with other specified complication (E11.69) Active confirmed Problem Mixed hyperlipidemia (117589801) Mixed hyperlipidemia (E78.2) Active confirmed Problem Hypertension (60197858) HTN (hypertension) (I10) Active confirmed Problem Allergic rhinitis (51121942) Allergic rhinitis (J30.9) Active confirmed Problem Hyperlipidemia (63993487) Hyperlipidemia (E78.5) Active confirmed Problem Type II diabetes mellitus without complication (970625787) Diabetes mellitus type 2, noninsulin dependent (E11.9) Active confirmed Problem Seasonal allergic rhinitis (166812346) Seasonal rhinitis (J30.2) Active confirmed Problem Thyroid nodule (981632777) Thyroid nodule (E04.1) Active confirmed Problem Osteoarthritis of knee (526863237) Primary osteoarthritis of both knees (M17.0) Active confirmed Vital Signs Heart Rate 76 /min 01/07/2025 Temperature 97.5 degrees Fahrenheit 01/07/2025 Blood pressure diastolic 68 mm Hg 01/07/2025 Height 5 ft 5 in in 01/07/2025 Blood pressure systolic 138 mm Hg 01/07/2025 Weight 147.8 lbs 01/07/2025 BMI 24.59 kg/m2 01/07/2025 Encounters Encounter Location Date Provider Diagnosis [facility] [address] [place] [address] 12/06/2024 Provider Migration Type 2 diabetes mellitus with other diabetic kidney complication E11.29 [facility] [address] [place] [address] 07/09/2024 Rob Smith Immunization(s) administered Z23 ; Type 2 diabetes mellitus with other diabetic kidney complication E11.29 ; Diabetes mellitus type 2, noninsulin dependent E11.9 ; Proteinuria, unspecified R80.9 ; Routine medical exam Z00.00 ; HTN (hypertension) I10 and Hyperlipidemia E78.5 [facility] [address] [place] [address] 01/07/2025 Rob Smith Diabetes mellitus ty pe 2, noninsulin dependent E11.9 ; HTN (hypertension) I10 ; Hyperlipidemia E78.5 ; Healthcare maintenance Z00.00 ; Persistent proteinuria R80.1 and Primary osteoarthritis of both knees M17.0 [facility] [address] [place] [address] 06/05/2025 Rob Smith Visit for screening mammogram Z12.31 Assessments Encounter Date Diagnosis (ICD Code) Assessment Notes Treatment Notes Treatment Clinical Notes Section Notes 07/09/2024 Type 2 diabetes mellitus with other diabetic kidney complication (ICD-10 - E11.29) Continue current regimen and add Verapamil 100 mg. Monitoring with labs today. 07/09/2024 Immunization(s) administered (ICD-10 - Z23) 12/06/2024 Type 2 diabetes mellitus with other diabetic kidney complication (ICD-10 - E11.29) 01/07/2025 HTN (hypertension) (ICD-10 - I10) -BP on ARB and verapamil 01/07/2025 Diabetes mellitus type 2, noninsulin dependent (ICD-10 - E11.9) -A1c 7.2 at last visit -Noted to have proteinuria at last visit, started on verapamil -Tolerating metformin and SGLT2i -on ARB therapy -BG at home running around -recjeck a1c today, continue meds as above 06/05/2025 Visit for screening mammogram (ICD-10 - Z12.31) 01/07/2025 Hyperlipidemia (ICD-10 - E78.5) -Tolerating low dose Crestor 5mg -repeat lipid panel today 07/09/2024 Diabetes mellitus type 2, noninsulin dependent (ICD-10 - E11.9) 07/09/2024 Proteinuria, unspecified (ICD-10 - R80.9) Start Verapamil 100 mg daily. 01/07/2025 Healthcare maintenance (ICD-10 - Z00.00) -cologuard due on 2025 -Mammogram UTD as of 05/27 -could use PCV and shingrix, declined in past 01/07/2025 Persistent proteinuria (ICD-10 - R80.1) -on SGLT, ARB, and now verapamil, tolerating all of the above -repeat urine protein/cr today 07/09/2024 Routine medical exam (ICD-10 - Z00.00) HRA reviewed, no signs of cognitive impair. 11/03 word recall Depression screening negative Great functional status, no falls Labs drawn today Negative cologaurd 01/2023 Last mammogram 05/2024 Non-smoker, not candidate for lung cancer screening Received Flu vaccination today, up to date on RSV vaccination. Declines Prevnar 20 and shingles vaccinations 07/09/2024 HTN (hypertension) (ICD-10 - I10) With addition of Verapamil, continue to monitor blood pressure. 01/07/2025 Primary osteoarthritis of both knees (ICD-10 - M17.0) -No early AM pain, worse w/activity and weather changes recently -BL, no pain in quads or calves, not particularly a myalgia -no effusion, gait is impaire, heavily favoring R side -XR knee, RTC and can consider injections -APAP for pain, minimize NSAIDS ISO proteinuria 07/09/2024 Hyperlipidemia (ICD-10 - E78.5) Monitor with labs today, continue current regimen and will make changes if necessary. Plan Of Treatment Pending Test Test Name Order Date Microalbumin (In-House) 07/18/2010 Microalbumin (In-House) 03/27/2008 Ultrasound : Thyroid 07/09/2023 Mammogram : Bilateral 03/25/2013 Mammogram : Bilateral 03/27/2008 Mammogram : Bilateral 04/19/2011 Mammogram : Bilateral 06/05/2025 H-HGBA1C 09/14/2008 C-CBC 11/17/2011 Next Appt Details Provider Name:Rob Smith, 07/08/2025 10:00:00 AM, [address], [place], [address], Insurance Providers Payer Name Payer Address Payer Phone Subscriber Number Group Number Insured Name Patient Relationship to Insured Coverage Start Date Coverage End Date [employer] MED[employer] [address] [address] [place] [address] [id number] Farzaneh Montanez Self - patient is the insured Medical (General) History Medical History History ICD Code hypercholestrolemia Unremarkable dilated eye exam on 03/30/20 15 HTN [Hypertension] Lipoprotein deficiency Type II or unspecified type diabetes mellitus without mention of complication, not stated as uncontrolled Hyperlipidemia, unspecified Normal colonoscopy 2004 - yury bolanos declined reeval - cologuard negative 01/2023 normal cologuard screening t est January 2017 - repeated some are 20/20 and also normal Normal bone density on Dexa 10/2018 and 1 09/24 normal mammogram 05/2024 normal eye exam for diabetes in April 04 020 Arthritis Thyroid [id number] r epeat ultrasound in 08/2022 - Ultrasound repeated 07/26-TI-RADS 3-no further work-up recommended Surgical History Surgery Date(Month/Year) colonscopy-normal in 2004 Hospitalization History Reason Date(Month/Year) childbirth x 2
== END 2025-06-18 23:59 | disposition home or self-care (01) ==
LOC: RAD 08:21
PROVIDERS: PCP Internal Medicine Adolescent Medicine; Visit Provider Internal Medicine Adolescent Medicine
DX: Z12.31 Encounter for screening mammogram for malignant neoplasm of breast (principal); R92.323 Mammographic fibroglandular density, bilateral breasts
CPT/HCPCS: 77063; 77067